=== PATIENT | female | born 1980 | race Caucasian/White ===

== ENCOUNTER 2023-07-16 06:56 | Emergency (ER) | payer MEDICAID, OTHER ==
[2023-07-16] MEDS ORDERED: ONDANSETRON 4 MG/2 ML VIAL IVP STA ×2 (07:34→13:05)
[2023-07-16] MEDS ORDERED: SODIUM CHLORIDE 0.9% 1,000 ML IV STA (07:34)
[2023-07-16 07:55] LABS: BASOPHILS # (AUTO) 0.1 10^3/uL (0.0-0.1); BASOPHILS % (AUTO) 0.7 %; HCT - HEMATOCRIT 40.8 % (37.0-47.0); HGB - HEMOGLOBIN 13.9 g/dL (12.0-16.0); LYMPHOCYTES # (AUTO) 2.4 10^3/uL (1.5-3.5); LYMPHOCYTES % (AUTO) 32.5 %; MEAN CORPUSCULAR HEMOGLOBIN 34.2 pg (27.0-31.0); MEAN CORPUSCULAR HGB CONC 34.1 g/dL (32.0-36.0); MEAN CORPUSCULAR VOLUME 100.2 fL (81.0-99.0); MEAN PLATELET VOLUME 9.8 fL (7.9-10.8); MONOCYTES # (AUTO) 0.9 10^3/uL (0.0-1.0); MONOCYTES % (AUTO) 11.9 %; NEUTROPHILS # (AUTO) 4.1 10^3/uL (1.5-6.6); NEUTROPHILS % (AUTO) 54.6 %; PLT - PLATELET COUNT 465 10^3/uL (130-450); RED BLOOD COUNT 4.07 10^6/uL (4.20-5.40); RED CELL DISTRIBUTION WIDTH 13.3 % (12.0-15.0); WHITE BLOOD COUNT 7.5 x10^3/uL (4.8-10.8)
[2023-07-16] MEDS ORDERED: MORPHINE 2 MG/ML CARPUJECT IVP STA (08:01)
--- NOTE | 2023-07-16 08:13 | ED Physician Documentation ---
PD HPI ABD PAIN - Stated complaint Stated Complaint: NAUSEA/STOMACH PX - Chief complaint Chief Complaint: Abd Pain - History obtained from History obtained from: Patient - Additional information Additional information: Patient is a 43-year-old female with a history of alcohol abuse and pancreatitis presenting for evaluation of upper abdominal pain with nausea and vomiting for the past 2 to 3 days. She states that she last had a drink of alcohol on Tuesday and her symptoms started on . She is visiting from [place]. She was recently admitted at the beginning of June for an episode of alcohol induced pancreatitis according to the [facility]. She reached out to her fish cake maker who prescribed her pain medications which she picked up and has been taking which have helped a little bit but no nausea medications were prescribed. She Dulle does also use cannabis occasionally. Denies history of abdominal surgeries. No fever, cough, chest pain, shortness of air. Denies concerns for . Review of Systems Constitutional: denies: Fever Cardiac: denies: Chest pain / pressure Respiratory: denies: Dyspnea GI: reports: Nausea, Vomiting. denies: Abdominal Pain, Diarrhea : denies: Dysuria PD PAST MEDICAL HISTORY - Past Medical History Past Medical History: Yes GI: Pancreatitis - Past Surgical History Past Surgical History: No - Present Medications Home Medications: Ambulatory Orders Medication Instructions Recorded Confirmed Ondansetron Odt [Zofran] 4 mg TL Q6H PRN #12 tablet 07/16/23 Venlafaxine HCl [Effexor Xr] 150 mg PO DAILY 07/16/23 07/16/23 oxyCODONE [Roxicodone] 5 mg PO Q6H PRN #12 tablet 07/16/23 - Allergies Allergies/Adverse Reactions: Allergies Allergy/AdvReac Type Severity Reaction Status Date / Time risperidone AdvReac Unknown Verified 07/16/23 08:08 - Social History Does the pt smoke?: No Smoking Status: Never smoker PD ED PE NORMAL - General General: Alert and oriented X 3, Well developed/nourished, Other ( This feels similar to prior episodes of pancreatitis. She has been having difficulty in keeping any oral intake down. Moaning, dry heaving) - HEENT HEENT: Atraumatic, Moist mucous membranes, Pharynx benign - Neck Neck: Supple, no meningeal sign - Cardiac Cardiac: RRR, No murmur - Respiratory Respiratory: No respiratory distress, Clear bilaterally - Abdomen Abdomen: Normal bowel sounds, Soft, Non distended, Other (Epigastric tenderness) - Derm Derm: Warm and dry - Neuro Neuro: Normal speech Results - Vitals Vitals: Vital Signs - 24 hr 07/16/23 07/16/23 07/16/23 07:26 09:47 10:54 Temperature 36.8 C 36.4 C L Heart Rate 136 H 110 H 104 H Respiratory 22 18 18 Rate Blood Pressure 144/97 H 139/96 H 148/99 H O2 Saturation 99 99 97 07/16/23 07/16/23 13:03 14:01 Temperature 36.3 C L 36.1 C L Heart Rate 95 84 Respiratory 18 18 Rate Blood Pressure 141/110 H 140/81 H O2 Saturation 99 97 Oxygen O2 Source Room air - EKG (time done) 0839 EKG releavant findings:: EKG personally interpreted by author of this note. Relevant findings are: Rate 125, sinus tachycardia, no STEMI, No prior available for comparison - Labs Labs: Laboratory Tests 07/16/23 07/16/23 07/16/23 07:49 07:49 09:57 WBC 7.5 RBC 4.07 L Hgb 13.9 Hct 40.8 MCV 100.2 H MCH 34.2 H MCHC 34.1 RDW 13.3 Plt Count 465 H MPV 9.8 Neut # (Auto) 4.1 Lymph # (Auto) 2.4 [place] # (Auto) 0.9 Eos # (Auto) 0.0 Baso # (Auto) 0.1 Absolute Nucleated RBC 0.00 Nucleated RBC % 0.0 Sodium 132 L Potassium 3.1 L Chloride 83 L Carbon Dioxide 24 Anion Gap 25.0 H BUN 16 Creatinine 1.4 H Estimated GFR (MDRD) 41 L Glucose 121 H Calcium 11.9 H Total Bilirubin 2.8 H AST 47 H ALT 27 Alkaline Phosphatase 78 Total Protein 8.9 Albumin 4.6 Globulin 4.3 H Albumin/Globulin Ratio 1.1 Lipase 28 Urine Color DARK YELLOW Urine Clarity SL. CLOUDY Urine pH 6.0 Ur Specific [place] >=1.030 H Urine Protein 100 H Urine Glucose (UA) NEGATIVE Urine Ketones >=80 H Urine Occult Blood TRACE-INTA Urine Nitrite NEGATIVE Urine Bilirubin NEGATIVE Urine Urobilinogen 0.2 (NORMAL) Ur Leukocyte Esterase NEGATIVE Urine RBC 0-5 Urine WBC 0-3 Ur Squamous Epith Cells MANY Squamous H Urine Bacteria Rare Ur Microscopic Review INDICATED Urine Culture Comments NOT INDICATED Urine HCG, Qual NEGATIVE Ethyl Alcohol < 10.0 PD Medical Decision Making - ED course Complexity details: reviewed results, re-evaluated patient, d/w patient, d/w family ED course: Patient is a 43-year-old female with a history of pancreatitis, gallbladder issues, alcohol abuse presenting for evaluation of upper abdominal pain with nausea and vomiting after having alcohol a few days ago. She is visiting the area from [place] and was recently hospitalized for pancreatitis at the beginning of the month. She initially was tachycardic with EKG showing a sinus rhythm. Labs obtained including a CBC, chemistries, urinalysis. Potassium is 3.1. Bilirubin is 2.8 with mild elevation in AST. No prior labs here for comparison but I was able to get some outpatient records which showed normal bilirubin on Jul 03. Creatinine is slightly elevated from patient's baseline of 1.4. Patient was given IV fluids, IV nonnarcotic pain medications including morphine and Dilaudid as well as IV Zofran with improvement in her symptoms. CT scan was obtained which does not show signs of acute pancreatitis or issues with the gallbladder. Right upper quadrant also an ultrasound was also obtained which did not show biliary dilatation or signs of cholecystitis. Patient denies a known history of gallstones. She is believes she had a HIDA scan recently and was told that she should have her gallbladder out at some point in the near future. Patient is tolerating p.o. here.She initially vomited up one of her oxycodone pills so it was reordered but was able to keep this down along with some fluids. At this time I do not see indication for admission and she is comfortable with outpatient management of her symptoms. Patient understands importance of avoiding foods that may trigger her pancreatitis or gallbladder issues. Patient given usual return precautions. Departure - Departure Disposition: 01 Home, Self Care Clinical Impression: Upper abdominal pain, History of pancreatitis Condition: Stable Instructions: ED Abdominal Pain Female Non-Specific Abdominal Pain, ED Epigastric Pain [facility] Prescriptions: oxyCODONE [Roxicodone] 5 mg PO Q6H PRN #12 tablet PRN Reason: Pain Ondansetron Odt [Zofran] 4 mg TL Q6H PRN #12 tablet PRN Reason: Nausea / Vomiting Forms: PCP List Discharge Date/Time: 07/16/23 14:33
[2023-07-16 08:18] LABS: ALBUMIN 4.6 g/dL (3.2-5.5); ETOH - ETHANOL < 10.0 mg/dL; LIPASE 28 U/L (11-82)
[2023-07-16 08:57] LABS: ALBUMIN/GLOBULIN RATIO 1.1 (1.0-2.2); ALKALINE PHOSPHATASE 78 IU/L (42-121); ALT ALANINE AMINOTRANSFERASE 27 IU/L (10-60); AST ASPARTATE AMINOTRANSFERASE 47 IU/L (10-42); BILIRUBIN,TOTAL 2.8 mg/dL (0.2-1.0); BUN - BLOOD UREA NITROGEN 16 mg/dL (6-20); CALCIUM 11.9 mg/dL (8.5-10.3); CARBON DIOXIDE - CO2 24 mmol/L (21-32); CHLORIDE 83 mmol/L (101-111); CREATININE 1.4 mg/dL (0.6-1.3); GFR - MDRD 41 (>89); GLUCOSE 121 mg/dL (74-104); POTASSIUM 3.1 mmol/L (3.5-4.5); SODIUM 132 mmol/L (135-145); TOTAL PROTEIN 8.9 g/dL (6.4-8.9)
[2023-07-16] MEDS ORDERED: HYDROmorphone 1 MG/ML CARPUJECT IVP STA (09:25)
[2023-07-16 10:08] LABS: GLUCOSE, URINE (UA) NEGATIVE (NEGATIVE); KETONES,URINE (UA) >=80 mg/dL (NEGATIVE); LEUKOCYTE ESTERASE, URINE NEGATIVE (NEGATIVE); NITRITE,URINE NEGATIVE (NEGATIVE); OCCULT BLOOD,URINE TRACE-INTA (NEGATIVE); PROTEIN,URINE 100 mg/dL (NEGATIVE); UROBILINOGEN,URINE 0.2 (NORMAL) E.U./dL (NORMAL)
[2023-07-16 10:24] LABS: BILIRUBIN,URINE NEGATIVE (NEGATIVE); CLARITY,URINE SL. CLOUDY (CLEAR); HCG UR QUAL NEGATIVE; ICTOTEST,URINE NEGATIVE
[2023-07-16 10:25] LABS: BACTERIA,URINE Rare /HPF (None Seen); RBC,URINE 0-5 /HPF (0-5); SQUAMOUS EPITHELIAL CELL,UR MANY Squamous (<= Few); WBC,URINE 0-3 /HPF (0-5)
--- NOTE | 2023-07-16 11:08 | CT Report ---
PROCEDURE: ABDOMEN/PELVIS W INDICATIONS: upper abd pain CONTRAST: Omni [id number] TECHNIQUE: After the administration of intravenous contrast, 5 mm thick sections acquired from the diaphragms to the symphysis. 5 mm thick coronal and sagittal reformats were acquired. For radiation dose reducti on, the following was used: automated exposure control, adjustment of mA and/or kV according to alfred ent size. COMPARISON: None. FINDINGS: Image quality: Excellent. Lung bases and heart: Circumferential thickening of the lower esophagus. Fluid within the lower esoph almaz. Moderate hiatal hernia. Liver: Marked hepatic steatosis, probably steatohepatitis. Smooth margin. Hepatic hemangioma in segme nt 7. Gallbladder and biliary tree: No radiopaque stones or wall thickening. No biliary dilation. Spleen: No splenomegaly. Pancreas: No pancreatic ductal dilation. Adrenals: No adrenal nodule. Kidneys and ureters: No hydronephrosis. No renal cystic lesion which requires follow up. No solid mas s. Bowel and peritoneum: No bowel distension. No pathologic free fluid. Lymph nodes: No central or retroperitoneal adenopathy. Vessels: No infrarenal aortic aneurysm. PELVIS Reproductive organs: Unremarkable. Bladder: No abnormal wall thickening, accounting for underdistension. Pelvic lymph nodes: No pelvic adenopathy by size criteria. Bones: No aggressive osseous abnormality. Other: No significant ventral or inguinal hernia. IMPRESSION: Suspected distal esophagitis. Recommend outpatient GI referral for endoscopic evaluation, as the GE j unction appears mildly thickened and underlying mass cannot be excluded. Marked hepatic steatosis, probably steatohepatitis. No CT evidence of pancreatitis. Reviewed by: All Puga MD on 07/16/2023 11:07 AM [facility] Approved by: All Puga MD on 07/16/2023 11:07 AM PST Station ID: [email or web address]
[2023-07-16] MEDS ORDERED: oxyCODONE 5 MG TABLET PO STA ×2 (12:45→13:23)
[2023-07-16] MEDS ORDERED: iohexoL-300 100 ML VIAL IVP ONE (12:57)
[2023-07-16] MEDS: POTASSIUM BICARB 25 MEQ TABLET PO ONE ×2 (13:01→13:05)
--- NOTE | 2023-07-16 13:42 | Ultrasound Report ---
PROCEDURE: Abdomen Limited INDICATIONS: RUQ pain. TECHNIQUE: Real-time focused scanning was performed of the abdomen, with image documentation. COMPARISONS: None. FINDINGS: Liver: Increased liver echogenicity, with posterior attenuation, most consistent with moderate to se mary hepatic steatosis. Gallbladder: Unremarkable. Biliary ducts: Intrahepatic bile ducts are non-dilated. Extrahepatic bile duct caliber measures 5.1 mm. Normal is 6-7 mm or less in diameter, or 10 mm or less post-cholecystectomy. Pancreas: Visualized portions of the pancreas are sonographically normal. Right kidney: Normal in size and echotexture. Right kidney measures 9.6 cm long. No hydronephrosis o r nephrolithiasis. No solid masses. No complex renal cystic lesions which require follow-up. Miscellaneous: No free abdominal fluid. IMPRESSION: Moderate to severe hepatic steatosis. Reviewed by: All Puga MD on 07/16/2023 1:41 PM PST Approved by: All Puga MD on 07/16/2023 1:41 PM PST Station ID: [email or web address]
[2023-07-16 14:09] VITALS: BP 140/81; O2SAT 97
== END 2023-07-16 14:33 | disposition home or self-care (01) ==
LOC: ED 06:56
DX: R10.10 Upper abdominal pain, unspecified (principal); Z87.19 Personal history of other diseases of the digestive system
CPT/HCPCS: 36415; 74177; 76705; 80053; 80320; 81001; 81025; 83690; 85025; 93005; 96374; 96375; 99284; A9270; J1170; Q9967; 81003; 87086